=== PATIENT | male | born 1960 | race African-American/Black ===

== ENCOUNTER 2018-12-25 06:41 | Inpatient (IN) | payer OTHER | END 2019-01-15 20:55 | disposition home or self-care (01) | LOC: FER 06:41 → J5S 12-27 01:32 → J4S 01-02 19:09 → J5S 10:53 ==

== ENCOUNTER 2019-02-02 06:27 | Observation (INO) | payer OTHER ==
--- NOTE | 2019-02-02 07:32 | PDOC ---
History of Present Illness - General Chief Complaint: Chest Pain Stated Complaint: CHEST PAIN/HEADACHE Time Seen by Provider: 02/02/19 07:20 History Source: Patient Exam Limitations: No Limitations - History of Present Illness Initial Comments: 58 yo M history afib, ESRD (started on HD 1 month ago), gout, HTN presents with headache and chest pain. He states that he felt chest pressure during dialysis yesterday, has been feeling it since. Chest pressure is constant, 4/10, unchanged by exertion. He completed his dialysis. He also states he has been having a frontal headache since dialysis yesterday. Denies trauma. Denies SOB, leg swelling. He is on warfarin for afib and a small PE. Denies N/V, diaphoresis. No prior cardiac procedures in the past. PMD: Gaurav (has not had his first appointment yet) Renal: [facility] Past History - Past Medical History Allergies/Adverse Reactions: Allergies Allergy/AdvReac Type Severity Reaction Status Date / Time No Known Allergies Allergy Verified 12/25/18 06:43 Home Medications: Ambulatory Orders Allopurinol [Zyloprim -] 100 mg PO Q72H #30 tablet 01/15/19 Atorvastatin Ca [Lipitor] 10 mg PO HS #30 tablet 01/15/19 Calcitriol [Rocaltrol -] 0.25 mcg PO DAILY #30 capsule 01/15/19 Calcium 500Mg/Vit-D 200 Units [Os-Nicholas 500+D -] 2 combo PO DAILY #60 tablet 01/15 Calcium Acetate [Phoslo -] 667 mg PO TIDCM #90 capsule 01/15/19 Carvedilol [Coreg -] 25 mg PO BID #60 tablet 01/15/19 Folic Acid - 1 mg PO DAILY #30 tablet 01/15/19 Pantoprazole Sodium [Protonix -] 40 mg PO DAILY #30 tablet.ec 01/15/19 Warfarin Na [Coumadin] 5 mg PO DAILY #30 tablet 01/15/19 hydrALAZINE HCL [Apresoline -] 20 mg PO BID #120 tablet 01/15/19 Colchicine [Colcrys] 0.5 mg PO DAILY 02/02/19 Cancer: No Cardiac Disorders: Yes COPD: No Disorders: Yes (DIALYSIS PT X1 MONTH) HTN: Yes - Suicide/Smoking/Psychosocial Hx Smoking History: Never smoked Have you smoked in the past 12 months: No Hx Alcohol Use: No Drug/Substance Use Hx: No Review of Systems - Review of Systems Able to Perform ROS?: Yes Comments:: GENERAL/CONSTITUTIONAL: No fever or chills. No weakness. HEAD, EYES, EARS, NOSE AND THROAT: No change in vision. No ear pain or discharge. No sore throat. CARDIOVASCULAR: +Chest pressure. No shortness of breath. RESPIRATORY: No cough, wheezing, or hemoptysis. GASTROINTESTINAL: No nausea, vomiting, diarrhea or constipation. GENITOURINARY: No dysuria, frequency, or change in urination. MUSCULOSKELETAL: No joint or muscle swelling or pain. No neck or back pain. SKIN: No rash. NEUROLOGIC: No vertigo, loss of consciousness, or change in strength/sensation. +Headache ENDOCRINE: No increased thirst. No abnormal weight change. HEMATOLOGIC/LYMPHATIC: No anemia, easy bleeding. +History of blood clots. ALLERGIC/IMMUNOLOGIC: No hives or skin allergy. *Physical Exam - Vital Signs Last Vital Signs Temp Pulse Resp BP Pulse Ox 98.7 F 88 16 150/97 99 02/02/19 06:32 02/02/19 06:32 02/02/19 06:32 02/02/19 06:32 02/02/19 06:32 - Physical Exam Comments: GENERAL: Awake, alert, and fully oriented, in no acute distress HEAD: No signs of trauma EYES: PERRLA, EOMI, sclera anicteric, conjunctiva clear ENT: Auricles normal inspection, hearing grossly normal, nares patent, oropharynx clear without exudates. Moist mucosa NECK: Normal ROM, supple, no lymphadenopathy, JVD, or masses LUNGS: Breath sounds equal, clear to auscultation bilaterally. No wheezes, and no crackles HEART: Regular rate and rhythm, normal S1 and S2, no murmurs, rubs or gallops ABDOMEN: Soft, nontender, normoactive bowel sounds. No guarding, no rebound. No masses EXTREMITIES: Normal range of motion, no edema. No clubbing or cyanosis. No cords, erythema, or tenderness NEUROLOGICAL: Cranial nerves II through XII grossly intact. Normal speech, normal gait. Motor and sensation intact SKIN: Warm, Dry, normal turgor, no rashes or lesions noted. +Permacath to R chest wall. Heart Score/ECG Review - History History: Moderately suspicious - Electrocardiogram EKG: Non specific repolarization disturbance - Age Age: 45-65 - Risk Factors Risk Factors Heart Score: Yes Hx Hypertension Based on the list above the patient has:: 1-2 risk factors - Troponin Troponin: </= normal limit - Score Heart Score - Total: 4 - ECG Impressions Comment:: EKG read 07:33- NSR 81 bpm, flattened T waves II, III, and aVF ED Treatment Course - LABORATORY CBC & Chemistry Diagram: 02/02/19 07:00 02/02/19 07:00 Medical Decision Making - Medical Decision Making 02/02/19 07:59 Pt recently diagnosed with ESRD on prior ED visit with this copywriter, has been getting dialysis and feeling better until yesterday. He developed cp during dialysis but declined to go to the ED at the time. He has continued to have the pain. In light of his prior history, risk of CAD is high. Will obtain labs including CBC, CMP, and troponin. Will obtain CTH in light of headache, as he is a dialysis patient and is on anticoagulation. 02/02/19 09:53 Troponin negative, CXR no acute pathology, CTH no ICH. Hospitalist paged for admission. 02/02/19 10:23 Case d/w [facility] Matias, patient accepted to Dr. Land's service on tele obs. *DC/Admit/Observation/Transfer Diagnosis at time of Disposition: Chest pain Qualifiers: Chest pain type: unspecified Qualified Code(s): R07.9 - Chest pain, unspecified - Discharge Dispostion Condition at time of disposition: Stable Decision to Admit order: Yes - Referrals Referrals: Rafael Nolasco MD [Primary Care Provider] - - Patient Instructions - Post Discharge Activity
[2019-02-02 08:25] LABS: BASO % 0.6 % (0-2.0); EOS % 3.7 % (0-4.5); HEMATOCRIT 35.3 % (35.4-49); HEMOGLOBIN 11.4 GM/dl (11.7-16.9); LYMPH % 27.8 % (8-40); MCH 30.5 pg (25.7-33.7); MCHC 32.3 g/dl (32.0-35.9); MEAN CELL VOLUME 94.4 fl (80-96); MEAN PLT VOLUME 11.2 fl (7.5-11.1); MONO % 12.3 % (3.8-10.2); NEUT % 55.6 % (42.8-82.8); PLATELET COUNT 148 K/MM3 (134-434); RBC 3.74 M/mm3 (4.00-5.60); RDW 14.4 % (11.9-15.9); WHITE BLOOD COUNT 6.5 K/mm3 (4.0-10.8)
[2019-02-02 08:31] LABS: ALBUMIN 3.2 g/dl (3.4-5.0); BILIRUBIN,TOTAL 0.9 mg/dl (0.2-1); CALCIUM 8.5 mg/dl (8.5-10); CREATININE 6.7 mg/dl (0.55-1.3); POTASSIUM 3.5 mmol/L (3.5-5.1); TOT PROT 6.4 g/dl (6.4-8.2)
[2019-02-02 08:44] LABS: INR 2.87 (0.82-1.09); PROTHROMBIN TIME (PATIENT) 31.5 SEC (10.2-13.0)
[2019-02-02] MEDS ORDERED: ASPIRIN 81 MG CHEWABLE TABLETS PO ONE (10:23)
[2019-02-02] MEDS ORDERED: ASPIRIN 81 MG CHEWABLE TABLETS ONE (11:44)
--- NOTE | 2019-02-02 12:34 | EKG ---
Test Reason : Blood Pressure : / mmHG Vent. Rate : 081 BPM Atrial Rate : 081 BPM P-R Int : 144 ms QRS Dur : 076 ms QT Int : 352 ms P-R-T Axes : 069 011 036 degrees QTc Int : 408 ms NORMAL SINUS RHYTHM POSSIBLE LEFT ATRIAL ENLARGEMENT NONSPECIFIC ST AND T WAVE ABNORMALITY ABNORMAL ECG Confirmed by DANNY PIEDRA MD ([id number]) on 02/02/2019 12:34:16 PM Referred By: MD GUPTA Confirmed By:DANNY PIEDRA MD
--- NOTE | 2019-02-02 13:12 | HP ---
CHIEF COMPLAINT: Chest pain and GOODRICH PCP: Gaurav Renal: [facility] HISTORY OF PRESENT ILLNESS: This is a 58 year old male with a pmhx significant for recent PE on Coumadin, Non-sustained VT, ESRD (started on HD 1 month ago), anemia of chronic disease, gout and HTN, who presents to ER c/o frontal headache and chest pain. He states that he felt epigastric/ chest pressure during dialysis yesterday,non- radiating and pain continued on and off, unchanged by exertion. Pt denies sob, palpitations, diaphoresis, abdominal pain, N/V/D or urinary symptoms. Pt also reports of having frontal GOODRICH during dialysis, denies any trauma or visual changes. Pt was admitted to [facility] last month and found to be in ESRD started on dialysis and developed PE. Pt is receiving dialysis TIW M// and on Coumadin for PE. ER course was notable for (1)EKG : SR, no acute ST changes (2) CT head- No acute intracranial pathology (3)CxR: No acute pathology ( reviewed by me) Recent Travel: Came from [place] month and a half ago PAST MEDICAL HISTORY: As mentioned above PAST SURGICAL HISTORY: Recent permacath placement Social History: Smoking: quit 15 years ago, smoked a several cigarettes/day Alcohol: stopped drinking 5 years ago Drugs: denies Family History: Father: gout, HTN (). Mother: DM, kidney stones. Brother: Kidney disease (unsure of which kind) Allergies No Known Allergies Allergy (Verified 12/25/18 06:43) HOME MEDICATIONS: Home Medications Medication Instructions Recorded Allopurinol [Zyloprim -] 100 mg PO Q72H #30 tablet 01/15/19 Atorvastatin Ca [Lipitor] 10 mg PO HS #30 tablet 01/15/19 Calcitriol [Rocaltrol -] 0.25 mcg PO DAILY #30 capsule 01/15/19 Calcium 500Mg/Vit-D 200 Units 2 combo PO DAILY #60 tablet 01/15/19 [Os-Nicholas 500+D -] Calcium Acetate [Phoslo -] 667 mg PO TIDCM #90 capsule 01/15/19 Carvedilol [Coreg -] 25 mg PO BID #60 tablet 01/15/19 Folic Acid - 1 mg PO DAILY #30 tablet 01/15/19 Pantoprazole Sodium [Protonix -] 40 mg PO DAILY #30 tablet.ec 01/15/19 Warfarin Na [Coumadin] 5 mg PO DAILY #30 tablet 01/15/19 hydrALAZINE HCL [Apresoline -] 20 mg PO BID #120 tablet 01/15/19 Colchicine [Colcrys] 0.5 mg PO DAILY 02/02/19 REVIEW OF SYSTEMS CONSTITUTIONAL: Absent: fever, chills, diaphoresis, generalized weakness, malaise, loss of appetite, weight change HEENT: Absent: rhinorrhea, nasal congestion, throat pain, throat swelling, difficulty swallowing, mouth swelling, ear pain, eye pain, visual changes CARDIOVASCULAR: Absent: chest pain, syncope, palpitations, irregular heart rate, lightheadedness , peripheral edema RESPIRATORY: Absent: cough, shortness of breath, dyspnea with exertion, orthopnea, wheezing, stridor, hemoptysis GASTROINTESTINAL: Absent: abdominal pain, abdominal distension, nausea, vomiting, diarrhea, constipation, melena, hematochezia GENITOURINARY: Absent: dysuria, frequency, urgency, hesitancy, hematuria, flank pain, genital pain MUSCULOSKELETAL: Absent: myalgia, arthralgia, joint swelling, back pain, neck pain SKIN: Absent: rash, itching, pallor HEMATOLOGIC/IMMUNOLOGIC: Absent: easy bleeding, easy bruising, lymphadenopathy, frequent infections ENDOCRINE: Absent: unexplained weight gain, unexplained weight loss, heat intolerance, cold intolerance NEUROLOGIC: Absent: headache, focal weakness or paresthesias, dizziness, unsteady gait, seizure, mental status changes, bladder or bowel incontinence PSYCHIATRIC: Absent: anxiety, depression, suicidal or homicidal ideation, hallucinations. PHYSICAL EXAMINATION Vital Signs - 24 hr 02/02/19 02/02/19 06:32 08:49 Temperature 98.7 F 98.3 F Pulse Rate 88 Pulse Rate [ 78 Right] Respiratory 16 20 Rate Blood Pressure 150/97 Blood Pressure 162/102 H [Left Arm] O2 Sat by Pulse 99 100 Oximetry (%) GENERAL: Awake, alert, and fully oriented, in no acute distress. HEAD: Normal with no signs of trauma. EYES: Pupils equal, round and reactive to light, extraocular movements intact, sclera anicteric, conjunctiva clear. No lid lag. EARS, NOSE, THROAT: Ears normal, nares patent, oropharynx clear without exudates. Moist mucous membranes. NECK: Normal range of motion, supple without lymphadenopathy, JVD, or masses. LUNGS: Breath sounds equal, clear to auscultation bilaterally. No wheezes, and no crackles. No accessory muscle use. HEART: Regular rate and rhythm, normal S1 and S2 without murmur, rub or gallop. ABDOMEN: Soft, nontender, not distended, normoactive bowel sounds, no guarding, no rebound, no masses. No hepatomegaly or splenomegaly. MUSCULOSKELETAL: Normal range of motion at all joints. No bony deformities or tenderness. No CVA tenderness. UPPER EXTREMITIES: 2+ pulses, warm, well-perfused. No cyanosis. No clubbing. No peripheral edema. LOWER EXTREMITIES: 2+ pulses, warm, well-perfused. No calf tenderness. No peripheral edema. NEUROLOGICAL: Cranial nerves II-XII intact. Normal speech. Normal gait. PSYCHIATRIC: Cooperative. Good eye contact. Appropriate mood and affect. SKIN: Warm, dry, normal turgor, no rashes or lesions noted, normal capillary refill. Laboratory Results - last 24 hr 02/02/19 02/02/19 02/02/19 07:00 07:00 07:00 WBC 6.5 RBC 3.74 L Hgb 11.4 L Hct 35.3 L MCV 94.4 MCH 30.5 MCHC 32.3 RDW 14.4 Plt Count 148 D MPV 11.2 H D Absolute Neuts (auto) 3.7 Neutrophils % 55.6 Lymphocytes % 27.8 Monocytes % 12.3 H D Eosinophils % 3.7 Basophils % 0.6 PT with INR INR Sodium 138 Potassium 3.5 Chloride 103 Carbon Dioxide 27 Anion Gap 8 BUN 25.0 H Creatinine 6.7 H Est GFR (CKD-EPI)AfAm 9.67 Est GFR (CKD-EPI)NonAf 8.34 Random Glucose 142 H Calcium 8.5 Total Bilirubin 0.9 AST 21 ALT 22 Alkaline Phosphatase 170 H Creatine Kinase 101 CK-MB (CK-2) 1.8 Troponin I 0.03 Total Protein 6.4 Albumin 3.2 L 02/02/19 07:33 WBC RBC Hgb Hct MCV MCH MCHC RDW Plt Count MPV Absolute Neuts (auto) Neutrophils % Lymphocytes % Monocytes % Eosinophils % Basophils % PT with INR 31.5 H INR 2.87 H Sodium Potassium Chloride Carbon Dioxide Anion Gap BUN Creatinine Est GFR (CKD-EPI)AfAm Est GFR (CKD-EPI)NonAf Random Glucose Calcium Total Bilirubin AST ALT Alkaline Phosphatase Creatine Kinase CK-MB (CK-2) Troponin I Total Protein Albumin ASSESSMENT/PLAN: This is a 58 year old male with a pmhx significant for recent PE on Coumadin, Non-sustained VT,ESRD (started on HD 1 month ago),anemia of chronic disease, gout and HTN, who presents to ER c/o headache and chest pain. *Chest pain - r/o ACS - tele monitoring - serial trop - EKG - SR, no acute ST changes - s/p ASA in ER - Nuclear stress test on - Normal, LVEF 69% - Echo on 12/25/18- Normal LVF, EF 70% * GOODRICH - reports resolved now - CT head - neg - neuro checks * PE ( recently dx) - will continue on home dose Coumadin - INR therapeutic - will f/u on INR *ESRD- dialysis on M/W/F - follows with renal Dr Cook -cre 1.7 *HTN -continue cardura, coreg, and norvasc - will monitor BP *Gout -home meds *Anemia of chronic disease Anemia -recent endoscopy and colonoscopy no bleeding was found. - H/H stable * VTE on Coumadin If ACS ruled out and remains chest pain free, will DC home. Visit type - Emergency Visit Emergency Visit: Yes ED Registration Date: 02/02/19 Care time: The patient presented to the Emergency Department on the above date and was hospitalized for further evaluation of their emergent condition. - New Patient This patient is new to me today: Yes Date on this admission: 02/03/19 - Critical Care Critical Care patient: No
[2019-02-02 13:29] VITALS: BMI 27.3
[2019-02-02] MEDS ORDERED: HEPARIN NA (PORCINE) 5,000 UNITS/ML 1ML VIAL SQ SCH (14:00)
[2019-02-02] MEDS: CALCIUM ACETATE 667 MG CAPSULE (FP) PO SCH ×2 (17:08→17:12)
[2019-02-02] MEDS ORDERED: WARFARIN NA 5 MG TABLET (UD) PO ONE (18:00)
[2019-02-02 19:14] VITALS: BP 155/85; PULSE 83; TEMP 97.8
[2019-02-02] MEDS ORDERED: CARVEDILOL 25 MG TABLET (FP) PO SCH (22:00)
[2019-02-02] MEDS ORDERED: ATORVASTATIN CA 10 MG TABLET (FP) PO SCH (22:00)
[2019-02-02] MEDS ORDERED: hydrALAZINE HCL 10 MG TABLET PO SCH (22:00)
[2019-02-03] MEDS ORDERED: PANTOPRAZOLE 40 MG TABLET (FP) PO SCH (10:00)
[2019-02-03] MEDS ORDERED: FOLIC ACID 1 MG TABLET (FP) PO SCH (10:00)
[2019-02-03] MEDS ORDERED: CALCIUM 500MG/VIT-D 200 UNITS COMBO TABLET (FP) PO SCH (10:00)
[2019-02-03] MEDS ORDERED: CALCITRIOL 0.25 MCG CAPSULE (FP) PO SCH (10:00)
--- NOTE | 2019-02-03 12:02 | DS ---
Physical Exam: SUBJECTIVE: Patient seen and examined OBJECTIVE: Vital Signs Period Temp Pulse Resp BP Sys/[place]ley Pulse Ox Last 24 Hr 97.7 F-98.1 F 78-90 18-19 148-155/80-86 98-99 PHYSICAL EXAM GENERAL: The patient is awake, alert, and fully oriented, in no acute distress. HEAD: Normal with no signs of trauma. EYES: PERRL, extraocular movements intact, sclera anicteric, conjunctiva clear. ENT: Ears normal, nares patent, oropharynx clear without exudates, moist mucous membranes. NECK: Trachea midline, full range of motion, supple. LUNGS: Breath sounds equal, clear to auscultation bilaterally, no wheezes, no crackles, no accessory muscle use. HEART: Regular rate and rhythm, S1, S2 without murmur, rub or gallop. ABDOMEN: Soft, nontender, nondistended, normoactive bowel sounds, no guarding, no rebound, no hepatosplenomegaly, no masses. EXTREMITIES: 2+ pulses, warm, well-perfused, no edema. NEUROLOGICAL: Cranial nerves II through XII grossly intact. Normal speech, gait not observed. PSYCH: Normal mood, normal affect. SKIN: Warm, dry, normal turgor, no rashes or lesions noted. LABS Laboratory Results - last 24 hr 02/02/19 02/02/19 13:45 18:50 Troponin I 0.04 0.03 HOSPITAL COURSE: Date of Admission:02/02/19 Date of Discharge: 02/03/19 Minutes to complete discharge: 35 Discharge Summary Reason For Visit: CHEST PAIN Hospital Course: This is a 58 year old male with a pmhx significant for recent PE on Coumadin, Non-sustained VT,ESRD (started on HD one month ago),anemia of chronic disease, gout and HTN, who presented to ER c/o headache epigastric/ chest pressure during dialysis. Pt denies sob, palpitations, diaphoresis, abdominal pain, N/V/ D or urinary symptoms. In ER, EKG - SR, no acute ST changes. Received ASA, serial cardiac enzymes negative, ACS rueld out. Telemetry monitoring reviewed, no cardiac events noted, VSS, pt remains chest pain free. Pt had a Nuclear stress test on - Normal, LVEF 69. Echo on 12/25/18- Normal LVF, EF 70%. Atypical chest likely due to GERD. Recommend out pt cardiology followup. * GOODRICH -C T head negative for ant interracial pathology, no neuro changes noted, GOODRICH resolved. * PE ( recently dx) will continue on home dose Coumadin,INR therapeutic *ESRD- dialysis on M/W/ follows with renal Dr Cook,cre 1.7 *HTN : BP stable,will cont on cardura, coreg, and norvasc *Gout:Home meds *Anemia of chronic disease : H/H stable Anemia,recent endoscopy and colonoscopy Condition: Stable - Instructions Referrals: Rafael Nolasco MD [Primary Care Provider] - (1-2 weeks) Richard Zaragoza MD [Staff Physician] - (1-2 weeks ) Idalmis Cook MD [Staff Physician] - (as scheduled ) Disposition: HOME - Home Medications Comprehensive Discharge Medication List: Ambulatory Orders Allopurinol [Zyloprim -] 100 mg PO Q72H #30 tablet 01/15/19 Atorvastatin Ca [Lipitor] 10 mg PO HS #30 tablet 01/15/19 Calcitriol [Calcitriol -] 0.25 mcg PO DAILY #30 capsule 01/15/19 Calcium 500Mg/Vit-D 200 Units [Os-Nicholas 500+D -] 2 combo PO DAILY #60 tablet 01/15 Calcium Acetate [Phoslo -] 667 mg PO TIDCM #90 capsule 01/15/19 Carvedilol [Coreg -] 25 mg PO BID #60 tablet 01/15/19 Folic Acid - 1 mg PO DAILY #30 tablet 01/15/19 Pantoprazole Sodium [Protonix -] 40 mg PO DAILY #30 tablet.ec 01/15/19 Warfarin Na [Coumadin -] 5 mg PO DAILY #30 tablet 01/15/19 hydrALAZINE HCL [Apresoline -] 20 mg PO BID #120 tablet 01/15/19 Colchicine [Colcrys] 0.5 mg PO DAILY 02/02/19 This patient is new to me today: Yes Date on this admission: 02/03/19 Emergency Visit: Yes ED Registration Date: 02/02/19 Care time: The patient presented to the Emergency Department on the above date and was hospitalized for further evaluation of their emergent condition. Critical Care patient: No - Discharge Referral Referred to [facility] Med P.C.: No
== END 2019-02-02 20:15 | disposition home or self-care (01) ==
LOC: FER 06:27 → INTOOBSV 12:47 → FM/S 12:47 → UNDOADMIN 12:56 → FM/S 12:56 → UNDODISIN 20:15
PROVIDERS: ADMIT Internal Medicine; ATTEND Nurse Practitioner Family
DX: R07.89 Other chest pain (principal); R51 Headache; I12.0 Hypertensive chronic kidney disease with stage 5 chronic kidney disease or end stage renal disease; N18.6 End stage renal disease; Z99.2 Dependence on renal dialysis; Z87.891 Personal history of nicotine dependence; M10.9 Gout, unspecified; D63.8 Anemia in other chronic diseases classified elsewhere; I26.99 Other pulmonary embolism without acute cor pulmonale; I82.409 Acute embolism and thrombosis of unspecified deep veins of unspecified lower extremity; Z79.01 Long term (current) use of anticoagulants
CPT/HCPCS: 36415; 70450-TC; 71045-TC-FY; 80053; 82550; 82553; 84484; 85025; 85610; 93005; 99283-25; G0378